=== PATIENT | female | born 1990 | race Caucasian/White ===

== ENCOUNTER 2018-07-06 14:56 | Outpatient (CLI) | payer BC ==
--- NOTE | 2018-07-06 16:55 | ULT ---
RIGHT LOWER EXTREMITY VENOUS DUPLEX ULTRASOUND INCLUDING COLOR AND SPECTRAL DOPPLER IMAGING: HISTORY: A 27-year-old female with a history of right leg and calf pain and swelling, since the prior surgery, after being on a plane ride. TECHNIQUE: Exam performed from groin to ankle, including the visualized greater saphenous vein, common femoral v ein, superficial femoral vein, profunda femoral vein, popliteal vein, trifurcation vein, and posterio r tibial vein regions. FINDINGS: There is obstructing intraluminal thrombus involving the distal superficial femoral vein and the popl iteal vein, and extending into the posterior tibial vein region, evidence for obstructing deep venous thrombosis. IMPRESSION: Obstructing deep venous thrombosis involving the distal superficial femoral vein, popliteal vein, and posterior tibial vein. The findings were discussed with Dr. Rivera by phone at 3:15 p.m. JERARDO CUELLO POS: [facility]
== END 2018-07-06 14:57 | disposition home or self-care (01) ==
LOC: SCSULT 14:56
PROVIDERS: ATTEND Orthopaedic Surgery
DX: M79.604 Pain in right leg (principal); I82.811 Embolism and thrombosis of superficial veins of right lower extremity

== ENCOUNTER 2018-07-06 15:35 | Emergency (ER) | payer BC ==
[2018-07-06] MEDS ORDERED: Rivaroxaban 10 MG TAB ONE (17:00)
== END 2018-07-06 17:25 | disposition home or self-care (01) ==
LOC: SCSER 15:35
DX: I82.401 Acute embolism and thrombosis of unspecified deep veins of right lower extremity (principal)
CPT/HCPCS: 99283

== ENCOUNTER 2018-09-01 09:12 | Outpatient (CLI) | payer BC | END 2018-09-01 09:13 | disposition home or self-care (01) | LOC: EKG 09:12 | PROVIDERS: ATTEND Internal Medicine Hematology & Oncology | DX: I82.401 Acute embolism and thrombosis of unspecified deep veins of right lower extremity (principal) | CPT/HCPCS: 93005; 93010 ==